=== PATIENT | male | born 1980 | race Two or more races ===

== ENCOUNTER 2025-01-13 09:01 | Emergency (ER) | payer MEDICAID, OTHER ==
[~2025-01-13] VITALS: Ht 172.7 cm; Wt 103.6 kg
[2025-01-13 09:30] VITALS: BP 127/87; RESP 18; O2SAT 93
--- NOTE | 2025-01-13 09:38 | ED.PDOC ---
History of Present Illness HPI Comments 44-year-old male presents to the ER with prior surgical history of left hip surgery, and chief complaint of right arm pain. Patient reports on falling off of a wall which was 6 ft tall and landing on his right arm. Patient states on having right bicep, tricep, collar bone pain. Patient notes that whenever he moves the extremity he hears clicking sound . Denies chills, loss of consciousness, hit head during fall, fever, N/V/D, SOB, CP. No other associated symptoms, modifiers, recent injuries or sick contacts present at this time. Chief Complaint: Upper Extremity Time Seen by MD: 09:00 Primary Care Provider: CLAY Lugo Notes: Nurses Notes, Medications, Allergies Allergies: Coded Allergies: NO KNOWN ALLERGIES (Unverified , 01/13/25) Information Source: Patient Mode of Arrival: Ambulatory Severity: Moderate Timing: Minutes Duration: Since onset, Minutes Prehospital treatment: None Past Medical History PAST MEDICAL HISTORY: Denies Surgical History (Other): Left hip surgery Family History Family History: Reviewed,noncontributory to illness, Unknown Social History Smoker: Non-Smoker Alcohol: Denies ETOH Use Drugs: Denies Drug Use Lives In: Home Constitutional: denies: chills, diaphoresis, fatigue, fever, malaise, sweats, weakness, others EENTM: denies: blurred vision, double vision, ear bleeding, ear discharge, ear drainage, ear pain, ear ringing, eye pain, eye redness, hearing loss, mouth pain, mouth swelling, nasal discharge, nose bleeding, nose congestion, nose pain, photophobia, tearing, throat pain, throat swelling, voice changes, others Respiratory: denies: cough, hemoptysis, orthopnea, SOB at rest, shortness of breath, SOB with excertion, stridor, wheezing, others Cardiovascular: denies: chest pain, dizzy spells, diaphoresis, Dyspnea on exertion, edema, irregular heart beat, left arm pain, lightheadedness, palpitations, PND, syncope, others Gastrointestinal: denies: abdomen distended, abdominal pain, blood streaked bowels, constipated, diarrhea, dysphagia, difficulty swallowing, hematemesis, melena, nausea, poor appetite, poor fluid intake, rectal bleeding, rectal pain, vomiting, others Genitourinary: denies: burning, dysuria, flank pain, frequency, hematuria, incontinence, penile discharge, penile sore, pain, testicle pain, testicle swelling, urgency, others Neurological: denies: dizziness, fainting, headache, left sided numbness, left sided weakness, numbness, paresthesia, pre-existing deficit, right sided numbness, right sided weakness, seizure, speech problems, tingling, tremors, weakness, others Musculoskeletal: reports: others (RUE pain); denies: back pain, gout, joint pain, joint swelling, muscle pain, muscle stiffness, neck pain Integumetry: denies: bruises, change in color, change in hair/nails, dryness, laceration, lesions, lumps, rash, wounds, others Allergic/Immunocompromised: denies: Difficulty Healing, Frequent Infections, Hives, Itching, others Hematologic/Lymphatic: denies: anemia, blood clots, easy bleeding, easy bruising, swollen glands, others Endocrine: denies: excessive hunger, excessive sweating, excessive thirst, excessive urination, flushing, intolerance to cold, intolerance to heat, unexplained weight gain, unexplained weight loss, others Psychiatric: denies: anxiety, bipolar disorder, depression, hopeless, panic disorder, schizophrenia, sleepless, suicidal, others All Other Systems: Reviewed and Negative Physical Exam General Appearance: No Apparent Distress, Normal HEENT: Normal ENT Inspection, Pharynx Normal, TMs Normal Neck: Full Range of Motion, Non-Tender, Normal, Normal Inspection Respiratory: Chest Non-Tender, Lungs Clear, No Accessory Muscle Use, No R espiratory Distress, Normal Breath Sounds Cardiovascular: No Edema, No JVD, No Murmur, No Gallop, Normal Peripheral Pulses, Regular Rate/Rhythm Breast Exam: Deferred Gastrointestinal: No Organomegaly, Non Tender, No Pulsatile Mass, Normal Bowel Sounds, Soft Genitalia: Deferred Pelvic: Deferred Rectal: Deferred Extremities: No calf tenderness, Normal capillary refill, Normal inspection, Normal range of motion, Non-tender, No pedal edema Musculoskeletal : Apperance: Normal Neurologic: Alert, tree and shrub technician II-XII nml as Tested, No Motor Deficits, Normal Affect, Normal Mood, No Sensory Deficits Cerebellar Function: Normal Reflexes: Normal Skin: Dry, Normal Color, Warm Lymphatic: No Adenopathy Was a procedure done? Was a procedure done?: No Differential Dx Considerations may include: shoulder scapular, clavicular, humeral fracture, dislocation, sprain, train, tendon,ligamentous tears, neurovascular injuries X-Ray, Labs, Meds, VS Vital Signs Date Time Temp Pulse Resp B/P (MAP) Pulse Ox O2 Delivery O2 Flow Rate FiO2 01/13/25 15:23 97.8 01/13/25 12:00 67 01/13/25 09:30 89 18 127/87 (100) 93 01/13/25 09:05 98.7 83 18 139/83 (101) 97 98.7 Current Medications Medications (Trade) Dose Ordered Sig/Eagle Route Start Time Stop Time Status Last Admin Ibuprofen (Motrin Tablet) 600 mg ONCE ONCE PO 01/13/25 15:15 01/13/25 15:16 DC 01/13/25 15:23 Time of 1ST Reevaluation: 09:30 Reevaluation 1ST: Unchanged Time of 2ND Reevaluation: 14:10 Reevaluation 2ND: Unchanged Consultation: Other (Dr Medina) Patient Education/Counseling: Diagnosis, Treatment, Prognosis, Need For Follow Up Family Education/Counseling: Diagnosis, Treatment, Prognosis, Need For Follow Up, No Family Present Comments pt is resting comfortably, waiting for MRI Dr Medina has been contacted. he wishes to have pt contact him for outpatient elective surgery. pt is placed in a sling with comfortable position, intact neurovascular functions SEPSIS Sepsis Screen Date sepsis recognized/suspect: Jan 13, 2025 Time Sepsis recognized/suspect: 904 Recent Procedure: No On Antibiotic Therapy: No Respiratory Rate >20: No Heart Rate >90: No Temp<36 C (96.8 F) or >38.3 C: No SBP <90 or MAP <65 mmHG: No New Acute Mental Status Change: No Is the patient on CPAP, BIPAP,: No Physician Orders R Shoulder 2+ View Xray (01/13/25 09:15) R Clavicle Complete Xray (01/13/25 09:15) R Humerus Xray (01/13/25 09:15) R Elbow 3 View Xray (01/13/25 09:15) R Scapula Complete Xray (01/13/25 09:15) Rt Shoulder Without (01/13/25 10:13) Vital Signs Date Time Temp Pulse Resp B/P (MAP) Pulse Ox O2 Delivery O2 Flow Rate FiO2 01/13/25 15:23 97.8 01/13/25 12:00 67 01/13/25 09:30 89 18 127/87 (100) 93 01/13/25 09:05 98.7 83 18 139/83 (101) 97 98.7 Medications Medications Dose Ordered Sig/Eagle Route Start Time Stop Time Status Last Admin Dose Admin Ibuprofen 600 mg ONCE ONCE PO 01/13/25 15:15 01/13/25 15:16 DC 01/13/25 15:23 Departure 1 Departure Time of Disposition: 15:25 Impression: Primary Impression: Rotator cuff tear Qualified Codes: S46.011A - Strain of muscle(s) and tendon(s) of the rotator cuff of right shoulder, initial encounter Disposition: HOME / SELF CARE / HOMELESS Condition: Stable Written Prescriptions follow up with Dr Medina, orthopedic, this week. Dr Medina's office will contact you e-Prescriptions Ibuprofen Micronized (MOTRIN TABLET) 600 Mg Tb 600 MG PO TID PRN, #40 TAB *Black box warning-NSAIDS can increase risk of SC & hypertension, GI irritation, ulceration, bleed, perferation. Do not use post cardiac surgery. Use short duration/lowest effective dose. Prov: JAMISON BIANCHI MD 01/13/25 Discharged With: Self, Relative (Mother) Critical Care Note Critical Care Time?: Yes (45 min-critical care time only) Critical care comment: Due to concerns for patients condition deteriorating, the care required my highest level of attention and readiness to intervene. I assessed the patient, reviewed the medical records, ordered the appropriate tests and treatments, then reassessed for results and responsiveness. I communicated with medical personnel and consultants and formulated a plan of care. Total critical care time excludes any procedures Stability Stability form required: No I personally scribed for JAMISON BIANCHI MD ([email or web address]) on 01/13/25 at 09:38. Electronically submitted by Jayme Monge ([email or web address]). JAMISON BIANCHI MD Jan 13, 2025 09:38
--- NOTE | 2025-01-13 10:00 | DVH ---
CLINICAL INDICATION: trauma TECHNIQUE: 3 radiographic views of the right shoulder were obtained. Comparison: None FINDINGS/IMPRESSION: There is no evidence of acute fracture or dislocation. The visualized joint space is well maintained. The alignment is anatomical. There is no radiopaque foreign body.
--- NOTE | 2025-01-13 10:01 | DVH ---
CLINICAL INDICATION: trauma TECHNIQUE: 3 radiographic views of the right elbow were obtained. Comparison: None FINDINGS/IMPRESSION: There is no evidence of acute fracture or dislocation. Small olecranon enthesophyte. The visualized joint space is well maintained. The alignment is anatomical. There is no radiopaque foreign body.
--- NOTE | 2025-01-13 10:01 | DVH ---
CLINICAL INDICATION: trauma TECHNIQUE: 2 radiographic views of the right humerus were obtained. Comparison: None FINDINGS/IMPRESSION: There is no evidence of acute fracture or dislocation. The visualized joint space is well maintained. The alignment is anatomical. There is no radiopaque foreign body.
--- NOTE | 2025-01-13 10:01 | DVH ---
CLINICAL INDICATION: Trauma TECHNIQUE: 2 radiographic views of the right scapula were obtained. Comparison: None FINDINGS/IMPRESSION: There is no evidence of acute fracture or dislocation. The visualized joint space is well maintained. The alignment is anatomical. There is no radiopaque foreign body.
--- NOTE | 2025-01-13 10:02 | DVH ---
CLINICAL INDICATION: trauma TECHNIQUE: 2 radiographic views of the right clavicle were obtained. Comparison: None FINDINGS/IMPRESSION: There is no evidence of acute fracture or dislocation. The visualized joint space is well maintained. The alignment is anatomical. There is no radiopaque foreign body.
[2025-01-13 12:00] VITALS: PULSE 67
--- NOTE | 2025-01-13 15:07 | DVH ---
EXAM: MRI RT SHOULDER WITHOUT HISTORY: rt shoulder pain COMPARISON: None TECHNIQUE: Multiplanar multisequence noncontrast MR images of the right shoulder were performed. FINDINGS: On coronal images full-thickness tears of the supraspinatus infraspinatus tendons with 18 mm retracti on. Coronal images there is thickening and increased signal of the subscapularis tendon. There is me dial subluxation of the tendon for the long head of the biceps from the bicipital groove. Glenoid lab rum is intact. The biceps labral anchor is intact. Interlaminar tear intra-articular biceps. Glenohumeral ligaments are intact. There is moderate degenerative arthrosis with spurring of the acromioclavicular joint IMPRESSION: Full-thickness rotator cuff tear is present involving supraspinatus and infraspinatus tendons. There is a partial-thickness intrasubstance tear distal subscapularis tendon with medial subluxation of the biceps tendon within the bicipital groove. Intra laminar tear of the intra-articular biceps.
[2025-01-13 15:23] VITALS: TEMP 97.8
[2025-01-13] MEDS: IBUPROFEN 600 MG TAB PO ONE (15:23)
[2025-01-13] MEDS ORDERED: IBU600T PO (15:27)
== END 2025-01-13 15:55 | disposition home or self-care (01) ==
LOC: ER 09:01
DX: S46.011A Strain of muscle(s) and tendon(s) of the rotator cuff of right shoulder, initial encounter (principal); W19.XXXA Unspecified fall, initial encounter; Y93.89 Activity, other specified; Y92.89 Other specified places as the place of occurrence of the external cause; Y99.8 Other external cause status
CPT/HCPCS: 73000; 73010; 73030; 73060; 73080; 73221